=== PATIENT | male | born 1960 | race Caucasian/White ===

== ENCOUNTER → 2020-11-20 | Outpatient (CLI) | payer OTHER, SELFPAY ==
--- NOTE | 2020-11-20 15:00 | FLU_PTH ---
PATIENT: NATHAN GUZMAN LOC: [facility] U#:[id number] AGE/SX: 59/M ROOM: RE11/20/[address]: Dr. Ragini Antoine MD : 1960 BED: DIS: 11/20/2020 SPEC #: [id number] RECD: 11/21/20 11:56 STATUS: MADALYN REQ #: [id number] LELAND: 11/20/20 15:[address]: Ragini Antoine DEPT: CYTOLOGY RECD BY: Lindsay Romero ENTERED: 11/21/20 13:06 SP TYPE: Fluid OTHR DR: Dr. Maribel Hernandez MD Tissues: A - Thyroid gland, NOS B - Thyroid gland, NOS Procedures: Special Stain Group II Surgery Specimen Level IV Cytospin Fluid HEADER OPERATION: Ultrasound-guided fine needle aspiration left thyroid PRE-OP DIAGNOSIS: Left thyroid nodule TISSUE SUBMITTED: A ? FNA left thyroid fluid for cytology, B - FNA left thyroid slides x6 DIAGNOSIS CYTOLOGY A. Left thyroid fluid for cytology, ultrasound-guided FNA (cytospin and cell block): Negative for malignant cells. See comment. B. Left thyroid nodule, ultrasound-guided FNA (smears): Atypical follicular cells of undetermined significance noted. Adequate for evaluation. See comment. SJ:anju 11/22/2020 COMMENT A. A cluster of follicular cells and a few macrophages are noted. Correlation with clinical, radiologic findings and appropriate follow up are necessary. This case was reviewed and diagnosis discussed with Dr. Antoine on 11/24/20. Case has been reviewed in consultation with Dr. Goodwin who concurs with the above diagnosis. IDC:AM CYTOLOGY STUDY Slides are reviewed. CYTOLOGY GROSS A - Received is 30 ml of brown cloudy fluid labeled with the patient's name and and designated per the requisition as left thyroid. Submitted for cytology preparation including cell block. B - Received are six smears labeled with the patient's name and designated per the requisition as left thyroid. Submitted for staining. / anju 11/21/2020 TC:5 CPT: 35704, 57330, 29180
== END | disposition home or self-care (01) ==
LOC: LABSPEC 11-21 12:27
PROVIDERS: PCP Family Medicine Sports Medicine; Referring Provider Surgery; Visit Provider Surgery
DX: E04.1 Nontoxic single thyroid nodule (principal)
CPT/HCPCS: 88108; 88305; 88313